=== PATIENT | female | born 1940 | race Caucasian/White ===

== ENCOUNTER 2017-02-16 03:21 | Inpatient (IN) | payer MEDICARE, OTHER ==
[~2017-02-16] VITALS: Ht 162.6 cm; Wt 36.2 kg
[~2017-02-16 03:21] MED LIST: AMLO5TAB16 PO; DOCU-20 PO; HYDR-3964 PO; IBUP-1984 PO; ONDA8TAB13 PO; POTA10TA15 PO
[2017-02-16] MEDS ORDERED: ondansetron/PF 4mg/2ml inj IV ONE (03:50)
[2017-02-16] MEDS ORDERED: normal saline 1000ML IV soln IVB ONE (03:50)
[2017-02-16 04:24] LABS: CLARITY,URINE Clear (Clear); COLOR,URINE Dark Yellow (Yellow); GLUCOSE, URINE Negative (Neg); KETONES,URINE Negative (Neg); LEUKOCYTE ESTERASE ,URINE Small (Neg); NITRITES, URINE Negative (Neg); OCCULT BLOOD,URINE Negative (Neg); PH,URINE 5.5 (4.8-8.0); PROTEIN,URINE Negative (Neg)
[2017-02-16] MEDS: morphine sulfate 8 MG/ML SYRINGE IV PRN ×3 (04:25→09:09)
[2017-02-16 04:34] LABS: UA COLLECTION TYPE CLN CATCH MIDSTREAM
[2017-02-16 04:35] LABS: BACTERIA,URINE FEW /HPF (Neg); MUCUS STRANDS FEW /LPF (Neg); RBC,URINE 0-2 /HPF (0-2); SQUAMOUS EPITHELIAL CELL,UR FEW /LPF (FEW)
[2017-02-16 04:50] LABS: BASOPHILS # (AUTO) 0.1 X10'3 (0-0.2); BASOPHILS % (AUTO) 0.6 % (0-1); EOSINOPHILS # (AUTO) 0.3 X10'3 (0-0.9); EOSINOPHILS % (AUTO) 1.5 % (0-6); HEMATOCRIT 39.2 % (35.0-45.0); HEMOGLOBIN 12.9 g/dl (12.0-16.0); LYMPHOCYTES # (AUTO) 1.3 X10'3 (1.1-4.8); LYMPHOCYTES % (AUTO) 7.2 % (21-51); MEAN CORPUSCULAR HEMOGLOBIN 30.1 PG (27.0-31.0); MEAN PLATELET VOLUME 8.2 FL (7.4-10.4); MONOCYTES # (AUTO) 1.6 X10'3 (0-0.9); NEUTROPHILS # (AUTO) 14.4 X10'3 (1.8-7.7); NEUTROPHILS % (AUTO) 81.7 % (42-75); PLATELET COUNT 441 X10'3 (140-440); RED CELL DISTRIBUTION WIDTH 14.5 % (11.5-14.5); WHITE BLOOD COUNT 17.7 X10'3 (4.5-11.0)
[2017-02-16 05:02] LABS: INR 1.3 INR; PARTIAL THROMBOPLASTIN TIME 27 SECONDS (22-32); PROTHROMBIN TIME 12.9 SECONDS (9.0-12.0)
[2017-02-16 05:04] LABS: ALANINE AMINOTRANSFERASE 26 U/L (12-78); ALBUMIN 2.5 G/DL (3.4-5.0); ALBUMIN/GLOBULIN RATIO 0.5 (1.1-1.5); ALKALINE PHOSPHATASE 212 IU/L (46-116); ANION GAP 7 (8-16); ASPARTATE AMINO TRANSFERASE 23 U/L (10-37); BILIRUBIN,TOTAL 1.1 MG/DL (0.1-1.0); BLOOD UREA NITROGEN 18 MG/DL (7-18); CALCIUM 9.7 MG/DL (8.5-10.1); CHLORIDE 94 MMOL/L (99-107); CREATININE 0.62 MG/DL (0.40-0.90); GLUCOSE 108 MG/DL (70-104); LIPASE < 50 U/L (73-393); POTASSIUM 4.2 MMOL/L (3.5-5.1); SODIUM 131 MMOL/L (135-145); TOTAL CARBON DIOXIDE 29.7 MMOL/L (24-32); TOTAL PROTEIN 7.5 G/DL (6.4-8.2); eGFR > 90 ML/MIN
[2017-02-16] MEDS ORDERED: POTASSIUM CL ER 10 MEQ TABLET (05:18)
[2017-02-16] MEDS ORDERED: HYDROMORPHONE 4 MG TABLET (05:18)
[2017-02-16] MEDS ORDERED: HYDROCODONE-ACETAMIN 5-325 MG (05:18)
[2017-02-16] MEDS ORDERED: ALENDRONATE SODIUM 70 MG TAB (05:18)
[2017-02-16] MEDS ORDERED: levoFLOXACIN-Levaquin 500mg/D5 100 ML IV ONE (05:40)
[2017-02-16] MEDS ORDERED: metroNIDAZOLE-Flagyl 500mg/NS 100 ML IV ONE (05:40)
[2017-02-16] MEDS ORDERED: magnesium hydroxide 30ml (MOM) UD suspension PO PRN (08:30)
[2017-02-16] MEDS ORDERED: potassium Cl 40MEQ/NS 500ml 500 ML IV PRN ×2 (08:30)
[2017-02-16] MEDS ORDERED: magnesium 2GM in 50ml NS 50 ML IV PRN (08:30)
[2017-02-16] MEDS ORDERED: magnesium 4gm in 100ml NS 100 ML IV PRN (08:30)
[2017-02-16] MEDS ORDERED: morphine sulfate 8 MG/ML SYRINGE IV PRN (08:30)
[2017-02-16] MEDS ORDERED: potassium Cl 20 mEq SR tablet PO PRN ×2 (08:30)
[2017-02-16] MEDS ORDERED: magnesium Cl slow-release 64mg tablet PO PRN (08:30)
[2017-02-16] MEDS ORDERED: mag hydrox/Alum hydrox/simeth 30ml oral suspension PO PRN (08:30)
[2017-02-16] MEDS ORDERED: acetaminophen 325mg tablet PO PRN (08:30)
[2017-02-16] MEDS ORDERED: LIDOcaine 1%/PF (10mg/ml) 5ml vial SQ ONE (09:50)
[2017-02-16] MEDS ORDERED: fentaNYL/PF 50MCG/1 ML 2ML syringe IV PRN (09:50)
[2017-02-16] MEDS ORDERED: fentaNYL/PF 50MCG/1 ML 2ML syringe ONE (09:54)
[2017-02-16 10:00] VITALS: BP 127/76
[2017-02-16 10:05] VITALS: BP 111/59
[2017-02-16 10:10] VITALS: BP 109/62
[2017-02-16 10:15] VITALS: BP 121/62
[2017-02-16 11:42] VITALS: BP 117/60
[2017-02-16] MEDS: normal saline 1000ml 1,000 ML IV SCH ×2 (14:36)
[2017-02-16] MEDS: metroNIDAZOLE-Flagyl 500mg/NS 100 ML IV SCH (17:59)
[2017-02-16] MEDS: lactobacillus rhamnosus 10,000 MMU CELLS/CAPSULE PO SCH (18:00)
[2017-02-16] MEDS: HYDROmorphone 2mg tablet PO PRN (18:01)
[2017-02-16 19:30] VITALS: BP 108/63
[2017-02-16] MEDS: HYDROcodone/acetaminophen 5mg/325mg tablet PO PRN (19:51)
[2017-02-17] MEDS: HYDROmorphone 2mg tablet PO PRN ×5 (00:01→20:05)
[2017-02-17] MEDS: normal saline 1000ml 1,000 ML IV SCH ×3 (01:00→23:46)
[2017-02-17 06:12] LABS: BASOPHILS % (AUTO) 0.3 % (0-1); EOSINOPHILS # (AUTO) 0.1 X10'3 (0-0.9); EOSINOPHILS % (AUTO) 0.6 % (0-6); HEMATOCRIT 33.7 % (35.0-45.0); HEMOGLOBIN 10.8 g/dl (12.0-16.0); LYMPHOCYTES # (AUTO) 1.2 X10'3 (1.1-4.8); LYMPHOCYTES % (AUTO) 11.8 % (21-51); MEAN CORPUSCULAR HEMOGLOBIN 29.3 PG (27.0-31.0); MEAN CORPUSCULAR HGB CONC 32.1 % (33.0-36.5); MEAN CORPUSCULAR VOLUME 91.2 FL (78-98); MEAN PLATELET VOLUME 7.9 FL (7.4-10.4); MONOCYTES # (AUTO) 1.6 X10'3 (0-0.9); MONOCYTES % (AUTO) 15.3 % (2-12); NEUTROPHILS # (AUTO) 7.4 X10'3 (1.8-7.7); PLATELET COUNT 328 X10'3 (140-440); RED BLOOD COUNT 3.69 X10'6 (4.20-5.60); RED CELL DISTRIBUTION WIDTH 14.3 % (11.5-14.5); WHITE BLOOD COUNT 10.3 X10'3 (4.5-11.0)
[2017-02-17 06:48] LABS: ALANINE AMINOTRANSFERASE 22 U/L (12-78); ALBUMIN 1.9 G/DL (3.4-5.0); ALBUMIN/GLOBULIN RATIO 0.5 (1.1-1.5); ALKALINE PHOSPHATASE 152 IU/L (46-116); ANION GAP 7 (8-16); ASPARTATE AMINO TRANSFERASE 21 U/L (10-37); BILIRUBIN,TOTAL 0.9 MG/DL (0.1-1.0); BLOOD UREA NITROGEN 12 MG/DL (7-18); BUN/CREATININE RATIO 24.5 (6.6-38.0); CALCIUM 8.4 MG/DL (8.5-10.1); CHLORIDE 105 MMOL/L (99-107); CREATININE 0.49 MG/DL (0.40-0.90); GLUCOSE 88 MG/DL (70-104); MAGNESIUM 1.7 MG/DL (1.5-2.4); POTASSIUM 4.1 MMOL/L (3.5-5.1); SODIUM 137 MMOL/L (135-145); TOTAL CARBON DIOXIDE 25.5 MMOL/L (24-32); TOTAL PROTEIN 5.7 G/DL (6.4-8.2); eGFR > 90 ML/MIN
[2017-02-17] MEDS: K and/or MAG REPLACEMENT MC SCH (07:07)
[2017-02-17] MEDS: lactobacillus rhamnosus 10,000 MMU CELLS/CAPSULE PO SCH ×2 (07:11→17:44)
[2017-02-17] MEDS: metroNIDAZOLE-Flagyl 500mg/NS 100 ML IV SCH ×4 (07:11→23:45)
[2017-02-17 08:00] VITALS: BP 104/56
[2017-02-17] MEDS: levoFLOXACIN-Levaquin 500mg/D5 100 ML IV SCH (08:46)
[2017-02-17] MEDS: LACTOSE-FREE FOOD 237ML (BOOST) PO SCH ×2 (08:46→17:30)
[2017-02-17 11:00] VITALS: BP 104/67
[2017-02-17] MEDS: HYDROcodone/acetaminophen 5mg/325mg tablet PO PRN ×3 (13:40→23:46)
[2017-02-17 19:25] VITALS: BP 111/63
[2017-02-17 23:30] VITALS: BP 104/63
[2017-02-18] MEDS: HYDROmorphone 2mg tablet PO PRN ×4 (02:56→20:08)
[2017-02-18 05:32] LABS: BASOPHILS % (AUTO) 0.5 % (0-1); EOSINOPHILS # (AUTO) 0.2 X10'3 (0-0.9); EOSINOPHILS % (AUTO) 1.6 % (0-6); HEMATOCRIT 33.5 % (35.0-45.0); HEMOGLOBIN 10.8 g/dl (12.0-16.0); LYMPHOCYTES # (AUTO) 0.9 X10'3 (1.1-4.8); LYMPHOCYTES % (AUTO) 8.2 % (21-51); MEAN CORPUSCULAR HEMOGLOBIN 29.5 PG (27.0-31.0); MEAN CORPUSCULAR HGB CONC 32.4 % (33.0-36.5); MEAN CORPUSCULAR VOLUME 91.1 FL (78-98); MEAN PLATELET VOLUME 8.3 FL (7.4-10.4); MONOCYTES # (AUTO) 1.5 X10'3 (0-0.9); MONOCYTES % (AUTO) 14.7 % (2-12); NEUTROPHILS # (AUTO) 7.9 X10'3 (1.8-7.7); PLATELET COUNT 268 X10'3 (140-440); RED BLOOD COUNT 3.67 X10'6 (4.20-5.60); RED CELL DISTRIBUTION WIDTH 14.7 % (11.5-14.5); WHITE BLOOD COUNT 10.5 X10'3 (4.5-11.0)
[2017-02-18] MEDS: HYDROcodone/acetaminophen 5mg/325mg tablet PO PRN ×4 (05:38→23:04)
[2017-02-18 06:18] LABS: ALANINE AMINOTRANSFERASE 18 U/L (12-78); ALBUMIN 1.8 G/DL (3.4-5.0); ALBUMIN/GLOBULIN RATIO 0.5 (1.1-1.5); ALKALINE PHOSPHATASE 134 IU/L (46-116); ANION GAP 9 (8-16); ASPARTATE AMINO TRANSFERASE 21 U/L (10-37); BILIRUBIN,TOTAL 0.8 MG/DL (0.1-1.0); BLOOD UREA NITROGEN 10 MG/DL (7-18); BUN/CREATININE RATIO 22.7 (6.6-38.0); CALCIUM 8.4 MG/DL (8.5-10.1); CHLORIDE 106 MMOL/L (99-107); CREATININE 0.44 MG/DL (0.40-0.90); GLUCOSE 93 MG/DL (70-104); MAGNESIUM 1.5 MG/DL (1.5-2.4); POTASSIUM 3.5 MMOL/L (3.5-5.1); SODIUM 138 MMOL/L (135-145); TOTAL CARBON DIOXIDE 22.8 MMOL/L (24-32); TOTAL PROTEIN 5.4 G/DL (6.4-8.2); eGFR > 90 ML/MIN
[2017-02-18 07:05] VITALS: BP 107/72
[2017-02-18] MEDS: K and/or MAG REPLACEMENT MC SCH (08:00)
[2017-02-18] MEDS: lactobacillus rhamnosus 10,000 MMU CELLS/CAPSULE PO SCH ×2 (08:13→16:55)
[2017-02-18] MEDS: metroNIDAZOLE-Flagyl 500mg/NS 100 ML IV SCH ×2 (08:13→16:55)
[2017-02-18] MEDS: normal saline 1000ml 1,000 ML IV SCH (08:16)
[2017-02-18] MEDS: LACTOSE-FREE FOOD 237ML (BOOST) PO SCH ×2 (08:21→18:00)
[2017-02-18] MEDS: levoFLOXACIN-Levaquin 500mg/D5 100 ML IV SCH (09:17)
[2017-02-18 11:00] VITALS: BP 110/55
[2017-02-18] MEDS ORDERED: iohexol 300mg/ml 100ml inj. ONE (13:22)
[2017-02-18 20:00] VITALS: BP 115/61
[2017-02-18] MEDS: ondansetron/PF 4mg/2ml inj IV PRN (20:07)
[2017-02-18 23:45] VITALS: BP 111/59
[2017-02-19] MEDS: metroNIDAZOLE-Flagyl 500mg/NS 100 ML IV SCH ×3 (00:03→16:39)
[2017-02-19] MEDS: HYDROmorphone 2mg tablet PO PRN ×6 (00:03→21:33)
[2017-02-19] MEDS: normal saline 1000ml 1,000 ML IV SCH ×3 (00:05→11:33)
[2017-02-19] MEDS: HYDROcodone/acetaminophen 5mg/325mg tablet PO PRN ×3 (05:00→19:25)
[2017-02-19 05:29] LABS: BASOPHILS % (AUTO) 0.2 % (0-1); EOSINOPHILS # (AUTO) 0.3 X10'3 (0-0.9); EOSINOPHILS % (AUTO) 2.3 % (0-6); HEMATOCRIT 32.6 % (35.0-45.0); HEMOGLOBIN 10.8 g/dl (12.0-16.0); LYMPHOCYTES # (AUTO) 1.3 X10'3 (1.1-4.8); LYMPHOCYTES % (AUTO) 10.5 % (21-51); MEAN CORPUSCULAR HEMOGLOBIN 29.7 PG (27.0-31.0); MEAN CORPUSCULAR HGB CONC 33.1 % (33.0-36.5); MEAN CORPUSCULAR VOLUME 89.9 FL (78-98); MEAN PLATELET VOLUME 7.7 FL (7.4-10.4); MONOCYTES # (AUTO) 1.3 X10'3 (0-0.9); MONOCYTES % (AUTO) 10.9 % (2-12); NEUTROPHILS # (AUTO) 9.2 X10'3 (1.8-7.7); NEUTROPHILS % (AUTO) 76.1 % (42-75); PLATELET COUNT 271 X10'3 (140-440); RED BLOOD COUNT 3.63 X10'6 (4.20-5.60); RED CELL DISTRIBUTION WIDTH 14.5 % (11.5-14.5); WHITE BLOOD COUNT 12.1 X10'3 (4.5-11.0)
[2017-02-19 05:49] LABS: ALANINE AMINOTRANSFERASE 17 U/L (12-78); ALBUMIN 1.9 G/DL (3.4-5.0); ALBUMIN/GLOBULIN RATIO 0.5 (1.1-1.5); ALKALINE PHOSPHATASE 129 IU/L (46-116); ANION GAP 8 (8-16); ASPARTATE AMINO TRANSFERASE 19 U/L (10-37); BILIRUBIN,TOTAL 0.8 MG/DL (0.1-1.0); BLOOD UREA NITROGEN 8 MG/DL (7-18); BUN/CREATININE RATIO 15.1 (6.6-38.0); CALCIUM 8.2 MG/DL (8.5-10.1); CHLORIDE 107 MMOL/L (99-107); CREATININE 0.53 MG/DL (0.40-0.90); GLUCOSE 114 MG/DL (70-104); MAGNESIUM 1.6 MG/DL (1.5-2.4); POTASSIUM 3.8 MMOL/L (3.5-5.1); SODIUM 139 MMOL/L (135-145); TOTAL CARBON DIOXIDE 24.1 MMOL/L (24-32); TOTAL PROTEIN 5.6 G/DL (6.4-8.2); eGFR > 90 ML/MIN
[2017-02-19] MEDS: LACTOSE-FREE FOOD 237ML (BOOST) PO SCH ×2 (07:30→17:31)
[2017-02-19] MEDS: K and/or MAG REPLACEMENT MC SCH (08:00)
[2017-02-19] MEDS: lactobacillus rhamnosus 10,000 MMU CELLS/CAPSULE PO SCH ×2 (08:50→17:15)
[2017-02-19 08:59] VITALS: BP 106/71
[2017-02-19] MEDS: levoFLOXACIN-Levaquin 500mg/D5 100 ML IV SCH (11:32)
[2017-02-19 12:00] VITALS: BP 130/77
[2017-02-19] MEDS ORDERED: FLUSH 5 MG ICATH ONE (14:15)
[2017-02-19] MEDS ORDERED: TPA CATHFLO ICATH ONE (14:15)
[2017-02-19] MEDS ORDERED: NORMAL SALINE ICATH ONE (14:15)
[2017-02-19] MEDS ORDERED: bisacodyl 5mg tablet.DR PO PRN (16:05)
[2017-02-19] MEDS: docusate sod 100mg capsule PO PRN (17:15)
[2017-02-19] MEDS ORDERED: cefepime 1GM/NS ADD-VANTAGE 100 ML IV SCH (18:40)
[2017-02-19 19:00] VITALS: BP 116/63
[2017-02-19] MEDS: clindamycin 600mg/D5W 50ml 50 ML IV SCH (19:28)
[2017-02-19] MEDS: heparin, porcine 5000 units/ml vial SQ SCH (23:52)
[2017-02-20] VITALS: BP 114/64
[2017-02-20] MEDS: normal saline 1000ml 1,000 ML IV SCH ×2 (01:05→11:20)
[2017-02-20] MEDS: clindamycin 600mg/D5W 50ml 50 ML IV SCH ×4 (01:05→20:11)
[2017-02-20] MEDS: HYDROcodone/acetaminophen 5mg/325mg tablet PO PRN ×4 (01:06→22:34)
[2017-02-20] MEDS: HYDROmorphone 2mg tablet PO PRN ×3 (04:17→20:11)
[2017-02-20 05:43] LABS: BASOPHILS # (AUTO) 0.1 X10'3 (0-0.2); BASOPHILS % (AUTO) 0.5 % (0-1); EOSINOPHILS # (AUTO) 0.2 X10'3 (0-0.9); EOSINOPHILS % (AUTO) 1.8 % (0-6); HEMATOCRIT 32.6 % (35.0-45.0); HEMOGLOBIN 10.6 g/dl (12.0-16.0); LYMPHOCYTES # (AUTO) 1.1 X10'3 (1.1-4.8); LYMPHOCYTES % (AUTO) 9.8 % (21-51); MEAN CORPUSCULAR HEMOGLOBIN 29.6 PG (27.0-31.0); MEAN CORPUSCULAR HGB CONC 32.5 % (33.0-36.5); MEAN PLATELET VOLUME 8.4 FL (7.4-10.4); MONOCYTES # (AUTO) 1.3 X10'3 (0-0.9); MONOCYTES % (AUTO) 10.9 % (2-12); PLATELET COUNT 245 X10'3 (140-440); RED BLOOD COUNT 3.58 X10'6 (4.20-5.60); WHITE BLOOD COUNT 11.7 X10'3 (4.5-11.0)
[2017-02-20 06:15] LABS: ALANINE AMINOTRANSFERASE 17 U/L (12-78); ALBUMIN 1.9 G/DL (3.4-5.0); ALBUMIN/GLOBULIN RATIO 0.5 (1.1-1.5); ALKALINE PHOSPHATASE 122 IU/L (46-116); ANION GAP 10 (8-16); ASPARTATE AMINO TRANSFERASE 17 U/L (10-37); BILIRUBIN,TOTAL 0.8 MG/DL (0.1-1.0); BLOOD UREA NITROGEN 8 MG/DL (7-18); BUN/CREATININE RATIO 14.5 (6.6-38.0); CALCIUM 8.4 MG/DL (8.5-10.1); CHLORIDE 109 MMOL/L (99-107); CREATININE 0.55 MG/DL (0.40-0.90); GLUCOSE 103 MG/DL (70-104); MAGNESIUM 1.7 MG/DL (1.5-2.4); POTASSIUM 3.9 MMOL/L (3.5-5.1); SODIUM 141 MMOL/L (135-145); TOTAL CARBON DIOXIDE 21.9 MMOL/L (24-32); TOTAL PROTEIN 5.4 G/DL (6.4-8.2); eGFR > 90 ML/MIN
[2017-02-20 07:00] VITALS: BP 113/44
[2017-02-20] MEDS ORDERED: FLUSH 5 MG ICATH ONE (08:00)
[2017-02-20] MEDS: K and/or MAG REPLACEMENT MC SCH (08:00)
[2017-02-20] MEDS ORDERED: NORMAL SALINE ICATH ONE (08:00)
[2017-02-20] MEDS ORDERED: TPA CATHFLO ICATH ONE (08:00)
[2017-02-20] MEDS: lactobacillus rhamnosus 10,000 MMU CELLS/CAPSULE PO SCH ×2 (09:12→17:03)
[2017-02-20] MEDS: heparin, porcine 5000 units/ml vial SQ SCH ×2 (09:18→16:23)
[2017-02-20] MEDS: LACTOSE-FREE FOOD 237ML (BOOST) PO SCH ×2 (09:18→17:31)
[2017-02-20] MEDS: docusate sod 100mg capsule PO PRN (09:29)
[2017-02-20 11:50] VITALS: BP 100/62
[2017-02-20] MEDS: docusate sod 250mg capsule PO SCH (20:10)
[2017-02-20 20:19] VITALS: BP 110/57
[2017-02-20] MEDS ORDERED: enoxaparin 40mg/0.4ml syringe SUBCUT ONE (22:10)
[2017-02-21] VITALS (7 sets, daily range): BP systolic 102–145; BP diastolic 62–82
[2017-02-21] MEDS: HYDROmorphone 2mg tablet PO PRN ×5 (00:56→20:04)
[2017-02-21] MEDS: clindamycin 600mg/D5W 50ml 50 ML IV SCH ×2 (03:35→07:49)
[2017-02-21] MEDS: HYDROcodone/acetaminophen 5mg/325mg tablet PO PRN ×3 (05:45→19:06)
[2017-02-21 07:37] LABS: ALANINE AMINOTRANSFERASE 18 U/L (12-78); ALBUMIN 1.7 G/DL (3.4-5.0); ALBUMIN/GLOBULIN RATIO 0.5 (1.1-1.5); ALKALINE PHOSPHATASE 113 IU/L (46-116); ANION GAP 8 (8-16); ASPARTATE AMINO TRANSFERASE 30 U/L (10-37); BILIRUBIN,TOTAL 0.8 MG/DL (0.1-1.0); BLOOD UREA NITROGEN 9 MG/DL (7-18); CALCIUM 7.9 MG/DL (8.5-10.1); CHLORIDE 111 MMOL/L (99-107); CREATININE 0.45 MG/DL (0.40-0.90); GLUCOSE 89 MG/DL (70-104); MAGNESIUM 1.6 MG/DL (1.5-2.4); SODIUM 140 MMOL/L (135-145); TOTAL CARBON DIOXIDE 20.7 MMOL/L (24-32); TOTAL PROTEIN 5.2 G/DL (6.4-8.2); eGFR > 90 ML/MIN
[2017-02-21] MEDS: lactobacillus rhamnosus 10,000 MMU CELLS/CAPSULE PO SCH ×2 (07:49→17:20)
[2017-02-21] MEDS: LACTOSE-FREE FOOD 237ML (BOOST) PO SCH ×2 (07:49→17:31)
[2017-02-21] MEDS: K and/or MAG REPLACEMENT MC SCH (07:57)
[2017-02-21] MEDS: ceftazidime 1000mg in D5W 50ml 50 ML IV SCH ×2 (11:48→20:05)
[2017-02-21] MEDS: metroNIDAZOLE-Flagyl 500mg/NS 100 ML IV SCH ×2 (12:42→21:20)
[2017-02-21] MEDS: vancomycin/NS 1 GM ADD-VANTAGE 250 ML IV SCH (13:00)
[2017-02-21] MEDS ORDERED: fentaNYL/PF 50MCG/1 ML 2ML syringe ONE (13:54)
[2017-02-21] MEDS: docusate sod 250mg capsule PO SCH (20:03)
[2017-02-21] MEDS: enoxaparin 40mg/0.4ml syringe SUBCUT SCH (20:05)
[2017-02-22] VITALS: BP 105/63
[2017-02-22] MEDS: HYDROmorphone 2mg tablet PO PRN ×5 (01:07→21:37)
[2017-02-22] MEDS: HYDROcodone/acetaminophen 5mg/325mg tablet PO PRN ×3 (04:20→20:40)
[2017-02-22 08:00] VITALS: BP 118/54
[2017-02-22] MEDS: K and/or MAG REPLACEMENT MC SCH (08:00)
[2017-02-22] MEDS: lactobacillus rhamnosus 10,000 MMU CELLS/CAPSULE PO SCH ×2 (08:16→16:57)
[2017-02-22] MEDS: enoxaparin 40mg/0.4ml syringe SUBCUT SCH (08:16)
[2017-02-22] MEDS: LACTOSE-FREE FOOD 237ML (BOOST) PO SCH ×2 (08:17→17:56)
[2017-02-22] MEDS: ceftazidime 1000mg in D5W 50ml 50 ML IV SCH ×2 (08:37→20:40)
[2017-02-22] MEDS ORDERED: bisacodyl 10mg suppository rectal RC PRN (09:20)
[2017-02-22] MEDS: metroNIDAZOLE-Flagyl 500mg/NS 100 ML IV SCH (09:24)
[2017-02-22] MEDS: vancomycin/NS 1 GM ADD-VANTAGE 250 ML IV SCH (10:47)
[2017-02-22 11:00] VITALS: BP 104/63
[2017-02-22] MEDS ORDERED: polyethylene glycol 3350 17gm powd pack PO ONE (13:30)
[2017-02-22 18:15] VITALS: BP 115/61
[2017-02-22] MEDS: apixaban 5mg tablet PO SCH (20:39)
[2017-02-22] MEDS: docusate sod 250mg capsule PO SCH (20:39)
[2017-02-22] MEDS: metroNIDAZOLE 500mg tablet PO SCH (20:40)
[2017-02-22] MEDS ORDERED: polyethylene glycol 3350 17gm powd pack PO SCH (21:00)
[2017-02-22 23:00] VITALS: BP 112/69
[2017-02-23] MEDS: HYDROmorphone 2mg tablet PO PRN ×5 (01:55→21:49)
[2017-02-23] MEDS: HYDROcodone/acetaminophen 5mg/325mg tablet PO PRN ×2 (04:49→15:19)
[2017-02-23] MEDS: ondansetron/PF 4mg/2ml inj IV PRN (04:49)
[2017-02-23 07:20] VITALS: BP 112/66
[2017-02-23] MEDS: metroNIDAZOLE 500mg tablet PO SCH ×2 (07:28→20:30)
[2017-02-23] MEDS: apixaban 5mg tablet PO SCH ×2 (07:28→20:30)
[2017-02-23] MEDS: lactobacillus rhamnosus 10,000 MMU CELLS/CAPSULE PO SCH ×2 (07:28→17:09)
[2017-02-23] MEDS: ceftazidime 1000mg in D5W 50ml 50 ML IV SCH ×2 (07:31→20:30)
[2017-02-23] MEDS: K and/or MAG REPLACEMENT MC SCH (07:31)
[2017-02-23] MEDS ORDERED: bisacodyl 5mg tablet.DR PO SCH (08:35)
[2017-02-23] MEDS: LACTOSE-FREE FOOD 237ML (BOOST) PO SCH (08:53)
[2017-02-23] MEDS: vancomycin/NS 1 GM ADD-VANTAGE 250 ML IV SCH (08:53)
[2017-02-23 11:52] VITALS: BP 108/65
[2017-02-23 18:30] VITALS: BP 116/70
[2017-02-23] MEDS: docusate sod 250mg capsule PO SCH (20:30)
[2017-02-24] VITALS: BP 99/57
[2017-02-24] MEDS: HYDROcodone/acetaminophen 5mg/325mg tablet PO PRN ×3 (00:03→23:31)
[2017-02-24] MEDS: HYDROmorphone 2mg tablet PO PRN ×4 (02:46→19:57)
[2017-02-24] MEDS: LACTOSE-FREE FOOD 237ML (BOOST) PO SCH ×3 (02:46→17:54)
[2017-02-24 07:23] VITALS: BP 111/61
[2017-02-24] MEDS ORDERED: VANCOMYCIN LEVEL IV ONE (07:30)
[2017-02-24] MEDS: K and/or MAG REPLACEMENT MC SCH (08:00)
[2017-02-24] MEDS: metroNIDAZOLE 500mg tablet PO SCH ×2 (08:36→19:56)
[2017-02-24] MEDS: ceftazidime 1000mg in D5W 50ml 50 ML IV SCH ×2 (08:36→19:59)
[2017-02-24] MEDS: lactobacillus rhamnosus 10,000 MMU CELLS/CAPSULE PO SCH ×2 (08:36→16:44)
[2017-02-24] MEDS: apixaban 5mg tablet PO SCH ×2 (08:36→19:56)
[2017-02-24 08:44] LABS: BASOPHILS # (AUTO) 0.1 X10'3 (0-0.2); BASOPHILS % (AUTO) 0.6 % (0-1); EOSINOPHILS # (AUTO) 0.3 X10'3 (0-0.9); EOSINOPHILS % (AUTO) 2.4 % (0-6); HEMOGLOBIN 11.8 g/dl (12.0-16.0); LYMPHOCYTES % (AUTO) 18.6 % (21-51); MEAN CORPUSCULAR HEMOGLOBIN 29.6 PG (27.0-31.0); MEAN CORPUSCULAR HGB CONC 32.7 % (33.0-36.5); MEAN CORPUSCULAR VOLUME 90.4 FL (78-98); MEAN PLATELET VOLUME 8.2 FL (7.4-10.4); MONOCYTES # (AUTO) 1.2 X10'3 (0-0.9); MONOCYTES % (AUTO) 11.1 % (2-12); NEUTROPHILS # (AUTO) 7.2 X10'3 (1.8-7.7); NEUTROPHILS % (AUTO) 67.3 % (42-75); PLATELET COUNT 304 X10'3 (140-440); RED BLOOD COUNT 3.98 X10'6 (4.20-5.60); RED CELL DISTRIBUTION WIDTH 15.6 % (11.5-14.5); WHITE BLOOD COUNT 10.7 X10'3 (4.5-11.0)
[2017-02-24 08:47] LABS: ALBUMIN 1.9 G/DL (3.4-5.0); ANION GAP 5 (8-16); BLOOD UREA NITROGEN 12 MG/DL (7-18); BUN/CREATININE RATIO 21.1 (6.6-38.0); CALCIUM 8.3 MG/DL (8.5-10.1); CHLORIDE 109 MMOL/L (99-107); CREATININE 0.57 MG/DL (0.40-0.90); GLUCOSE 110 MG/DL (70-104); POTASSIUM 4.2 MMOL/L (3.5-5.1); SODIUM 141 MMOL/L (135-145); TOTAL CARBON DIOXIDE 27.4 MMOL/L (24-32); VANCOMYCIN,TROUGH 6.1 UG/ML (6.0-14.0); eGFR > 90 ML/MIN
[2017-02-24] MEDS: vancomycin/NS 1 GM ADD-VANTAGE 250 ML IV SCH (10:19)
[2017-02-24 12:02] VITALS: BP 102/61
[2017-02-24] MEDS: bisacodyl 5mg tablet.DR PO PRN (15:39)
[2017-02-24] MEDS: Protein Shake (high protein) 240ml (8oz) cup PO SCH (17:54)
[2017-02-24 19:00] VITALS: BP 117/70
[2017-02-24] MEDS: docusate sod 250mg capsule PO SCH (21:15)
[2017-02-25] VITALS: BP 112/69
[2017-02-25] MEDS: HYDROmorphone 2mg tablet PO PRN ×3 (01:49→13:39)
[2017-02-25] MEDS: K and/or MAG REPLACEMENT MC SCH (08:00)
[2017-02-25] MEDS: ceftazidime 1000mg in D5W 50ml 50 ML IV SCH ×2 (08:26→20:00)
[2017-02-25] MEDS: lactobacillus rhamnosus 10,000 MMU CELLS/CAPSULE PO SCH ×2 (08:27→17:30)
[2017-02-25] MEDS: apixaban 5mg tablet PO SCH ×2 (08:27→20:00)
[2017-02-25] MEDS: metroNIDAZOLE 500mg tablet PO SCH ×2 (08:27→20:00)
[2017-02-25] MEDS: LACTOSE-FREE FOOD 237ML (BOOST) PO SCH ×2 (08:28→18:06)
[2017-02-25] MEDS: Protein Shake (high protein) 240ml (8oz) cup PO SCH ×3 (08:28→18:06)
[2017-02-25 09:20] VITALS: BP 113/64
[2017-02-25] MEDS ORDERED: magnesium citrate 296ml oral solution PO ONE (09:30)
[2017-02-25] MEDS: vancomycin inj 1,250 MG in normal saline 250ml IV soln 250 ML IV SCH (09:30)
[2017-02-25 11:00] VITALS: BP 106/62
[2017-02-25 11:20] LABS: ALBUMIN 1.8 G/DL (3.4-5.0); ANION GAP 5 (8-16); BLOOD UREA NITROGEN 13 MG/DL (7-18); BUN/CREATININE RATIO 27.7 (6.6-38.0); CHLORIDE 108 MMOL/L (99-107); CREATININE 0.47 MG/DL (0.40-0.90); GLUCOSE 129 MG/DL (70-104); POTASSIUM 3.9 MMOL/L (3.5-5.1); SODIUM 140 MMOL/L (135-145); TOTAL CARBON DIOXIDE 26.9 MMOL/L (24-32); eGFR > 90 ML/MIN
[2017-02-25] MEDS: HYDROcodone/acetaminophen 5mg/325mg tablet PO PRN (16:29)
[2017-02-25] MEDS ORDERED: morphine/NS 5 mg/ml CADD 50 ML IV SCH (18:10)
[2017-02-25 19:00] VITALS: BP 117/67
[2017-02-25] MEDS: docusate sod 250mg capsule PO SCH (21:00)
[2017-02-25 23:00] VITALS: BP 123/73
[2017-02-26] VITALS: BP 112/54
[2017-02-26] MEDS: morphine/NS 5 mg/ml CADD 50 ML IV SCH ×10 (05:00→23:00)
[2017-02-26 06:36] LABS: ALBUMIN 1.9 G/DL (3.4-5.0); ANION GAP 7 (8-16); BLOOD UREA NITROGEN 12 MG/DL (7-18); BUN/CREATININE RATIO 23.1 (6.6-38.0); CALCIUM 8.3 MG/DL (8.5-10.1); CHLORIDE 110 MMOL/L (99-107); CREATININE 0.52 MG/DL (0.40-0.90); GLUCOSE 103 MG/DL (70-104); POTASSIUM 3.9 MMOL/L (3.5-5.1); SODIUM 143 MMOL/L (135-145); TOTAL CARBON DIOXIDE 25.7 MMOL/L (24-32); eGFR > 90 ML/MIN
[2017-02-26 07:12] VITALS: BP 99/58
[2017-02-26] MEDS: LACTOSE-FREE FOOD 237ML (BOOST) PO SCH ×2 (07:30→15:12)
[2017-02-26] MEDS: K and/or MAG REPLACEMENT MC SCH (08:00)
[2017-02-26] MEDS: Protein Shake (high protein) 240ml (8oz) cup PO SCH ×3 (08:00→17:48)
[2017-02-26] MEDS: apixaban 5mg tablet PO SCH ×2 (10:43→22:45)
[2017-02-26] MEDS: lactobacillus rhamnosus 10,000 MMU CELLS/CAPSULE PO SCH ×2 (10:43→17:47)
[2017-02-26] MEDS: ceftazidime 1000mg in D5W 50ml 50 ML IV SCH ×2 (10:43→20:00)
[2017-02-26] MEDS: metroNIDAZOLE 500mg tablet PO SCH ×2 (10:44→22:44)
[2017-02-26] MEDS: vancomycin inj 1,250 MG in normal saline 250ml IV soln 250 ML IV SCH (10:44)
[2017-02-26 12:00] VITALS: BP 102/57
[2017-02-26] MEDS ORDERED: bisacodyl 10mg suppository rectal RC PRN (16:55)
[2017-02-26 19:00] VITALS: BP 108/67
[2017-02-26] MEDS ORDERED: normal saline 1000ml 1,000 ML IV ONE (20:05)
[2017-02-26] MEDS: docusate sod 250mg capsule PO SCH (22:45)
[2017-02-26 23:00] VITALS: BP 112/54
[2017-02-27] MEDS ORDERED: normal saline 1000ml 1,000 ML IV ONE (00:50)
[2017-02-27] MEDS: morphine/NS 5 mg/ml CADD 50 ML IV SCH ×11 (01:00→23:00)
[2017-02-27] MEDS: apixaban 5mg tablet PO SCH ×2 (07:04→20:20)
[2017-02-27] MEDS: metroNIDAZOLE 500mg tablet PO SCH ×2 (07:05→20:20)
[2017-02-27] MEDS: lactobacillus rhamnosus 10,000 MMU CELLS/CAPSULE PO SCH ×2 (07:05→17:30)
[2017-02-27] MEDS: ceftazidime 1000mg in D5W 50ml 50 ML IV SCH ×2 (07:05→20:20)
[2017-02-27] MEDS: LACTOSE-FREE FOOD 237ML (BOOST) PO SCH ×2 (07:08→17:30)
[2017-02-27 07:51] VITALS: BP 107/65
[2017-02-27] MEDS: K and/or MAG REPLACEMENT MC SCH (08:00)
[2017-02-27] MEDS: Protein Shake (high protein) 240ml (8oz) cup PO SCH ×3 (08:13→18:00)
[2017-02-27] MEDS: vancomycin inj 1,250 MG in normal saline 250ml IV soln 250 ML IV SCH (10:45)
[2017-02-27 11:00] VITALS: BP 123/67
[2017-02-27] MEDS ORDERED: lipase/protease/amylase 20,000 unit capsule.DR PO SCH (18:49)
[2017-02-27] MEDS ORDERED: LIPASE/PROTEASE/AMYLASE 4,200 unit CAPSULE.DR PO SCH (19:20)
[2017-02-27 20:00] VITALS: BP 112/64
[2017-02-27] MEDS: megestrol acetate 400mg/10ml UD oral suspension PO SCH (20:00)
[2017-02-27] MEDS: LIPASE/PROTEASE/AMYLASE 4,200 unit CAPSULE.DR PO SCH (20:20)
[2017-02-27] MEDS: docusate sod 250mg capsule PO SCH (21:00)
[2017-02-27] MEDS: polyethylene glycol 3350 17gm powd pack PO SCH (21:00)
[2017-02-27] MEDS: normal saline 1000ml 1,000 ML IV SCH (22:35)
[2017-02-28] VITALS: BP 122/68
[2017-02-28] MEDS: normal saline 1000ml 1,000 ML IV SCH ×4 (00:12→23:14)
[2017-02-28] MEDS: morphine/NS 5 mg/ml CADD 50 ML IV SCH ×12 (01:00→23:00)
[2017-02-28] MEDS ORDERED: VANCOMYCIN LEVEL IV ONE (07:30)
[2017-02-28] MEDS: lactobacillus rhamnosus 10,000 MMU CELLS/CAPSULE PO SCH (07:30)
[2017-02-28 07:35] VITALS: BP 113/68
[2017-02-28 07:52] LABS: BASOPHILS % (AUTO) 0.3 % (0-1); EOSINOPHILS # (AUTO) 0.2 X10'3 (0-0.9); EOSINOPHILS % (AUTO) 2.3 % (0-6); HEMOGLOBIN 12.2 g/dl (12.0-16.0); LYMPHOCYTES # (AUTO) 1.9 X10'3 (1.1-4.8); LYMPHOCYTES % (AUTO) 17.9 % (21-51); MEAN CORPUSCULAR HEMOGLOBIN 29.6 PG (27.0-31.0); MEAN CORPUSCULAR HGB CONC 32.2 % (33.0-36.5); MEAN CORPUSCULAR VOLUME 91.9 FL (78-98); MEAN PLATELET VOLUME 8.6 FL (7.4-10.4); MONOCYTES # (AUTO) 0.9 X10'3 (0-0.9); MONOCYTES % (AUTO) 8.6 % (2-12); NEUTROPHILS # (AUTO) 7.7 X10'3 (1.8-7.7); NEUTROPHILS % (AUTO) 70.9 % (42-75); PLATELET COUNT 315 X10'3 (140-440); RED BLOOD COUNT 4.13 X10'6 (4.20-5.60); RED CELL DISTRIBUTION WIDTH 16.9 % (11.5-14.5); WHITE BLOOD COUNT 10.9 X10'3 (4.5-11.0)
[2017-02-28 07:53] LABS: ALANINE AMINOTRANSFERASE 13 U/L (12-78); ALBUMIN 1.9 G/DL (3.4-5.0); ALBUMIN/GLOBULIN RATIO 0.5 (1.1-1.5); ALKALINE PHOSPHATASE 99 IU/L (46-116); ANION GAP 5 (8-16); ASPARTATE AMINO TRANSFERASE 28 U/L (10-37); BILIRUBIN,TOTAL 1.1 MG/DL (0.1-1.0); BLOOD UREA NITROGEN 11 MG/DL (7-18); CHLORIDE 111 MMOL/L (99-107); GLUCOSE 100 MG/DL (70-104); POTASSIUM 3.8 MMOL/L (3.5-5.1); SODIUM 141 MMOL/L (135-145); TOTAL CARBON DIOXIDE 24.7 MMOL/L (24-32); TOTAL PROTEIN 5.5 G/DL (6.4-8.2); eGFR > 90 ML/MIN
[2017-02-28 07:54] LABS: VANCOMYCIN,TROUGH 9.5 UG/ML (6.0-14.0)
[2017-02-28] MEDS: Protein Shake (high protein) 240ml (8oz) cup PO SCH ×3 (08:00→18:50)
[2017-02-28] MEDS: K and/or MAG REPLACEMENT MC SCH (08:00)
[2017-02-28] MEDS: LACTOSE-FREE FOOD 237ML (BOOST) PO SCH ×3 (09:42→18:52)
[2017-02-28] MEDS: apixaban 5mg tablet PO SCH ×2 (09:43→23:27)
[2017-02-28] MEDS: ceftazidime 1000mg in D5W 50ml 50 ML IV SCH ×2 (09:43→23:16)
[2017-02-28] MEDS: metroNIDAZOLE 500mg tablet PO SCH ×2 (09:43→23:27)
[2017-02-28] MEDS: LIPASE/PROTEASE/AMYLASE 4,200 unit CAPSULE.DR PO SCH ×3 (09:46→17:46)
[2017-02-28 11:30] VITALS: BP 107/58
[2017-02-28] MEDS: megestrol acetate 400mg/10ml UD oral suspension PO SCH ×2 (13:10→23:27)
[2017-02-28 20:00] VITALS: BP 115/68
[2017-02-28] MEDS: docusate sod 250mg capsule PO SCH (21:00)
[2017-02-28] MEDS: polyethylene glycol 3350 17gm powd pack PO SCH ×2 (21:00→23:28)
[2017-03-01] VITALS: BP 115/68
[2017-03-01] MEDS: morphine/NS 5 mg/ml CADD 50 ML IV SCH ×12 (01:00→23:00)
[2017-03-01] MEDS ORDERED: metoprolol tartrate 50mg tablet PO ONE (02:10)
[2017-03-01 03:45] VITALS: BP 95/62
[2017-03-01 07:21] VITALS: BP 102/67
[2017-03-01] MEDS: Protein Shake (high protein) 240ml (8oz) cup PO SCH ×3 (08:00→18:19)
[2017-03-01] MEDS: ceftazidime 1000mg in D5W 50ml 50 ML IV SCH ×2 (08:00→20:29)
[2017-03-01] MEDS: K and/or MAG REPLACEMENT MC SCH (08:00)
[2017-03-01] MEDS: LACTOBACILLUS RHAMNOSUS GG 15 billion unit sprinkle caps PO SCH (09:42)
[2017-03-01] MEDS: apixaban 5mg tablet PO SCH ×2 (09:45→22:13)
[2017-03-01] MEDS: metroNIDAZOLE 500mg tablet PO SCH ×2 (09:45→22:08)
[2017-03-01] MEDS: LIPASE/PROTEASE/AMYLASE 4,200 unit CAPSULE.DR PO SCH ×3 (09:46→17:20)
[2017-03-01] MEDS: megestrol acetate 400mg/10ml UD oral suspension PO SCH ×2 (09:46→22:13)
[2017-03-01 11:37] VITALS: BP 96/58
[2017-03-01] MEDS ORDERED: magnesium 2GM in 50ml NS 50 ML IV ONE (11:45)
[2017-03-01] MEDS: normal saline 1000ml 1,000 ML IV SCH (14:58)
[2017-03-01] MEDS: LACTOSE-FREE FOOD 237ML (BOOST) PO SCH (17:30)
[2017-03-01 18:30] VITALS: BP 103/77
[2017-03-01] MEDS: docusate sod 250mg capsule PO SCH (22:12)
[2017-03-01] MEDS: polyethylene glycol 3350 17gm powd pack PO SCH (22:14)
[2017-03-02 00:03] VITALS: BP 123/56
[2017-03-02] MEDS: morphine/NS 5 mg/ml CADD 50 ML IV SCH ×12 (01:00→23:00)
[2017-03-02] MEDS: normal saline 1000ml 1,000 ML IV SCH ×2 (05:52→23:52)
[2017-03-02] MEDS: LACTOSE-FREE FOOD 237ML (BOOST) PO SCH ×2 (07:03→17:30)
[2017-03-02] MEDS: LACTOBACILLUS RHAMNOSUS GG 15 billion unit sprinkle caps PO SCH (07:04)
[2017-03-02] MEDS: metroNIDAZOLE 500mg tablet PO SCH ×2 (07:04→19:36)
[2017-03-02] MEDS: LIPASE/PROTEASE/AMYLASE 4,200 unit CAPSULE.DR PO SCH ×3 (07:05→17:28)
[2017-03-02] MEDS: apixaban 5mg tablet PO SCH ×2 (07:05→19:37)
[2017-03-02] MEDS: megestrol acetate 400mg/10ml UD oral suspension PO SCH ×2 (07:05→19:40)
[2017-03-02 07:55] VITALS: BP 163/77
[2017-03-02] MEDS: Protein Shake (high protein) 240ml (8oz) cup PO SCH ×3 (08:00→19:25)
[2017-03-02] MEDS: ceftazidime 1000mg in D5W 50ml 50 ML IV SCH ×2 (08:56→19:40)
[2017-03-02] MEDS: metoprolol tartrate 12.5mg (1/2 tablet) PO SCH ×2 (08:59→20:00)
[2017-03-02 11:00] VITALS: BP 100/63
[2017-03-02] MEDS ORDERED: LIDOcaine 2% 10ml TOPICAL JELLY (Urojet) MM PRN (14:30)
[2017-03-02] MEDS ORDERED: CADD PCA waste documentation MC PRN (18:40)
[2017-03-02 19:15] VITALS: BP 105/67
[2017-03-02 21:10] VITALS: BP 90/55
[2017-03-02] MEDS: docusate sod 250mg capsule PO SCH (21:12)
[2017-03-02] MEDS: polyethylene glycol 3350 17gm powd pack PO SCH (21:12)
[2017-03-03] VITALS: BP 99/63
[2017-03-03] MEDS ORDERED: CADD PCA waste documentation MC PRN (05:30)
[2017-03-03] MEDS ORDERED: naloxone 0.4 mg/ml inj IV PRN (05:30)
[2017-03-03] MEDS: morphine/NS 5 mg/ml CADD 50 ML IV SCH ×10 (05:30→23:30)
[2017-03-03 06:54] LABS: ALBUMIN 1.6 G/DL (3.4-5.0); ANION GAP 4 (8-16); BLOOD UREA NITROGEN 12 MG/DL (7-18); BUN/CREATININE RATIO 14.5 (6.6-38.0); CALCIUM 8.2 MG/DL (8.5-10.1); CHLORIDE 114 MMOL/L (99-107); CREATININE 0.83 MG/DL (0.40-0.90); GLUCOSE 98 MG/DL (70-104); POTASSIUM 3.8 MMOL/L (3.5-5.1); SODIUM 141 MMOL/L (135-145); TOTAL CARBON DIOXIDE 23.3 MMOL/L (24-32); eGFR 67 ML/MIN
[2017-03-03] MEDS: LACTOSE-FREE FOOD 237ML (BOOST) PO SCH ×2 (07:30→17:30)
[2017-03-03 07:48] VITALS: BP 115/75
[2017-03-03] MEDS: LACTOBACILLUS RHAMNOSUS GG 15 billion unit sprinkle caps PO SCH (07:49)
[2017-03-03] MEDS: metoprolol tartrate 12.5mg (1/2 tablet) PO SCH ×2 (07:49→22:15)
[2017-03-03] MEDS: LIPASE/PROTEASE/AMYLASE 4,200 unit CAPSULE.DR PO SCH ×3 (07:49→18:01)
[2017-03-03] MEDS: apixaban 5mg tablet PO SCH ×2 (07:49→22:15)
[2017-03-03] MEDS: megestrol acetate 400mg/10ml UD oral suspension PO SCH ×2 (07:49→22:15)
[2017-03-03] MEDS: metroNIDAZOLE 500mg tablet PO SCH ×2 (07:50→22:15)
[2017-03-03] MEDS: ceftazidime 1000mg in D5W 50ml 50 ML IV SCH ×2 (07:52→20:20)
[2017-03-03] MEDS: Protein Shake (high protein) 240ml (8oz) cup PO SCH ×3 (07:56→18:50)
[2017-03-03] MEDS ORDERED: VANCOMYCIN LEVEL IV ONE (09:30)
[2017-03-03 09:57] LABS: BASOPHILS # (AUTO) 0.2 X10'3 (0-0.2); BASOPHILS % (AUTO) 1.2 % (0-1); EOSINOPHILS # (AUTO) 0.3 X10'3 (0-0.9); EOSINOPHILS % (AUTO) 2.5 % (0-6); HEMATOCRIT 35.7 % (35.0-45.0); HEMOGLOBIN 11.7 g/dl (12.0-16.0); LYMPHOCYTES # (AUTO) 1.9 X10'3 (1.1-4.8); MEAN CORPUSCULAR HGB CONC 32.9 % (33.0-36.5); MEAN CORPUSCULAR VOLUME 91.4 FL (78-98); MEAN PLATELET VOLUME 8.6 FL (7.4-10.4); MONOCYTES # (AUTO) 1.1 X10'3 (0-0.9); MONOCYTES % (AUTO) 8.5 % (2-12); NEUTROPHILS % (AUTO) 72.8 % (42-75); PLATELET COUNT 255 X10'3 (140-440); RED CELL DISTRIBUTION WIDTH 18.8 % (11.5-14.5); WHITE BLOOD COUNT 12.4 X10'3 (4.5-11.0)
[2017-03-03] MEDS: normal saline 1000ml 1,000 ML IV SCH ×3 (10:45→20:18)
[2017-03-03 11:56] VITALS: BP 87/54
[2017-03-03 19:00] VITALS: BP 103/47
[2017-03-03] MEDS: docusate sod 250mg capsule PO SCH (22:16)
[2017-03-03] MEDS: polyethylene glycol 3350 17gm powd pack PO SCH (22:16)
[2017-03-04] VITALS: BP 95/59
[2017-03-04] MEDS: morphine/NS 5 mg/ml CADD 50 ML IV SCH ×12 (01:00→23:30)
[2017-03-04] MEDS: normal saline 1000ml 1,000 ML IV SCH ×3 (03:13→19:30)
[2017-03-04 05:11] LABS: HEMATOCRIT 33.2 % (35.0-45.0); HEMOGLOBIN 10.7 g/dl (12.0-16.0); MEAN CORPUSCULAR HEMOGLOBIN 29.5 PG (27.0-31.0); MEAN CORPUSCULAR HGB CONC 32.3 % (33.0-36.5); MEAN CORPUSCULAR VOLUME 91.4 FL (78-98); MEAN PLATELET VOLUME 8.9 FL (7.4-10.4); PLATELET COUNT 256 X10'3 (140-440); RED BLOOD COUNT 3.63 X10'6 (4.20-5.60); RED CELL DISTRIBUTION WIDTH 18.7 % (11.5-14.5); WHITE BLOOD COUNT 10.4 X10'3 (4.5-11.0)
[2017-03-04 06:00] VITALS: BP 92/63
[2017-03-04] MEDS: ceftazidime 1000mg in D5W 50ml 50 ML IV SCH ×2 (07:15→22:32)
[2017-03-04] MEDS: megestrol acetate 400mg/10ml UD oral suspension PO SCH ×2 (07:15→22:33)
[2017-03-04] MEDS: LACTOBACILLUS RHAMNOSUS GG 15 billion unit sprinkle caps PO SCH (07:18)
[2017-03-04] MEDS: metoprolol tartrate 12.5mg (1/2 tablet) PO SCH ×2 (07:18→22:32)
[2017-03-04] MEDS: apixaban 5mg tablet PO SCH ×2 (07:18→22:32)
[2017-03-04] MEDS: metroNIDAZOLE 500mg tablet PO SCH ×2 (07:19→22:32)
[2017-03-04] MEDS: LIPASE/PROTEASE/AMYLASE 4,200 unit CAPSULE.DR PO SCH ×3 (07:19→20:23)
[2017-03-04] MEDS: LACTOSE-FREE FOOD 237ML (BOOST) PO SCH ×2 (07:26→17:30)
[2017-03-04 07:27] VITALS: BP 103/83
[2017-03-04] MEDS: Protein Shake (high protein) 240ml (8oz) cup PO SCH ×4 (08:44→18:30)
[2017-03-04] MEDS ORDERED: ipratropium/albuterol 3ml nebule NEB PRN (08:45)
[2017-03-04] MEDS: vancomycin inj 1,250 MG in normal saline 250ml IV soln 250 ML IV SCH (10:41)
[2017-03-04 12:09] VITALS: BP 93/52
[2017-03-04] MEDS ORDERED: normal saline 1000ml 1,000 ML IV SCH (18:25)
[2017-03-04 19:00] VITALS: BP 90/41
[2017-03-04] MEDS: polyethylene glycol 3350 17gm powd pack PO SCH ×2 (22:32→22:33)
[2017-03-04] MEDS: docusate sod 250mg capsule PO SCH (22:33)
[2017-03-04] MEDS: bisacodyl 5mg tablet.DR PO PRN (22:48)
[2017-03-04 23:30] VITALS: BP 107/68
[2017-03-05] MEDS: morphine/NS 5 mg/ml CADD 50 ML IV SCH ×12 (01:00→23:00)
[2017-03-05] MEDS: normal saline 1000ml 1,000 ML IV SCH ×2 (01:12→08:07)
[2017-03-05 05:25] LABS: HEMATOCRIT 35.2 % (35.0-45.0); HEMOGLOBIN 11.4 g/dl (12.0-16.0); MEAN CORPUSCULAR HEMOGLOBIN 29.7 PG (27.0-31.0); MEAN CORPUSCULAR HGB CONC 32.4 % (33.0-36.5); MEAN CORPUSCULAR VOLUME 91.8 FL (78-98); PLATELET COUNT 275 X10'3 (140-440); RED BLOOD COUNT 3.83 X10'6 (4.20-5.60); RED CELL DISTRIBUTION WIDTH 19.2 % (11.5-14.5); WHITE BLOOD COUNT 11.8 X10'3 (4.5-11.0)
[2017-03-05 05:48] LABS: ALBUMIN 1.6 G/DL (3.4-5.0); ANION GAP 6 (8-16); BLOOD UREA NITROGEN 12 MG/DL (7-18); BUN/CREATININE RATIO 14.1 (6.6-38.0); CALCIUM 7.8 MG/DL (8.5-10.1); CHLORIDE 115 MMOL/L (99-107); CREATININE 0.85 MG/DL (0.40-0.90); GLUCOSE 96 MG/DL (70-104); MAGNESIUM 1.7 MG/DL (1.5-2.4); POTASSIUM 3.7 MMOL/L (3.5-5.1); SODIUM 144 MMOL/L (135-145); TOTAL CARBON DIOXIDE 22.6 MMOL/L (24-32); eGFR 65 ML/MIN
[2017-03-05] MEDS: LACTOSE-FREE FOOD 237ML (BOOST) PO SCH ×2 (07:30→17:30)
[2017-03-05 07:41] VITALS: BP 100/60
[2017-03-05] MEDS: Protein Shake (high protein) 240ml (8oz) cup PO SCH ×3 (08:00→18:00)
[2017-03-05] MEDS: apixaban 5mg tablet PO SCH (09:02)
[2017-03-05] MEDS: megestrol acetate 400mg/10ml UD oral suspension PO SCH (09:02)
[2017-03-05] MEDS: metoprolol tartrate 12.5mg (1/2 tablet) PO SCH (09:02)
[2017-03-05] MEDS: metroNIDAZOLE 500mg tablet PO SCH (09:02)
[2017-03-05] MEDS: LACTOBACILLUS RHAMNOSUS GG 15 billion unit sprinkle caps PO SCH (09:02)
[2017-03-05] MEDS: LIPASE/PROTEASE/AMYLASE 4,200 unit CAPSULE.DR PO SCH ×3 (09:03→17:30)
[2017-03-05] MEDS: ceftazidime 1000mg in D5W 50ml 50 ML IV SCH (09:03)
[2017-03-05] MEDS: vancomycin inj 1,250 MG in normal saline 250ml IV soln 250 ML IV SCH (10:18)
[2017-03-05 12:01] VITALS: BP 105/63
[2017-03-05] MEDS ORDERED: metoclopramide 5 mg/ml inj IV PRN (15:20)
[2017-03-05] MEDS ORDERED: morphine oral 20mg/ml (conc. morphine) 1ml oral syringe PO PRN (15:20)
[2017-03-05] MEDS ORDERED: LORazepam 2 mg/ml vial IV ONE (15:20)
[2017-03-05] MEDS ORDERED: dronabinol 2.5mg capsule PO PRN (15:20)
[2017-03-05] MEDS ORDERED: apixaban 2.5mg tablet PO SCH (15:25)
[2017-03-05] MEDS ORDERED: atropine sulfate 1% ophthalmic drops SL PRN (15:35)
[2017-03-05] MEDS: docusate sod 250mg capsule PO SCH (21:00)
[2017-03-05] MEDS: polyethylene glycol 3350 17gm powd pack PO SCH (21:00)
[2017-03-06] MEDS: morphine/NS 5 mg/ml CADD 50 ML IV SCH ×12 (01:00→23:00)
[2017-03-06 07:18] VITALS: BP 115/63
[2017-03-06] MEDS: LACTOSE-FREE FOOD 237ML (BOOST) PO SCH ×2 (07:30→17:30)
[2017-03-06] MEDS: LACTOBACILLUS RHAMNOSUS GG 15 billion unit sprinkle caps PO SCH (07:30)
[2017-03-06] MEDS: Protein Shake (high protein) 240ml (8oz) cup PO SCH ×3 (08:00→18:00)
[2017-03-06] MEDS ORDERED: ondansetron 4mg rapidly disintigrating tab PO PRN (08:15)
[2017-03-06] MEDS: LIPASE/PROTEASE/AMYLASE 4,200 unit CAPSULE.DR PO SCH ×3 (08:30→17:30)
[2017-03-06] MEDS: morphine 10mg/0.5ml (conc. morphine) oral syringe PO PRN ×2 (09:40→11:32)
[2017-03-06 20:00] VITALS: BP 111/89
[2017-03-06] MEDS: polyethylene glycol 3350 17gm powd pack PO SCH (21:00)
[2017-03-06] MEDS: docusate sod 250mg capsule PO SCH (21:00)
[2017-03-07] MEDS: morphine/NS 5 mg/ml CADD 50 ML IV SCH ×12 (01:00→23:00)
[2017-03-07 06:00] VITALS: BP 110/68
[2017-03-07] MEDS: LACTOSE-FREE FOOD 237ML (BOOST) PO SCH ×2 (07:30→17:59)
[2017-03-07] MEDS: LACTOBACILLUS RHAMNOSUS GG 15 billion unit sprinkle caps PO SCH (08:44)
[2017-03-07] MEDS: LIPASE/PROTEASE/AMYLASE 4,200 unit CAPSULE.DR PO SCH ×3 (08:44→18:42)
[2017-03-07] MEDS: Protein Shake (high protein) 240ml (8oz) cup PO SCH ×3 (08:45→18:00)
[2017-03-07] MEDS ORDERED: VANCOMYCIN LEVEL IV NR (09:30)
[2017-03-07 11:00] VITALS: BP 104/57
[2017-03-07] MEDS: LORazepam 1 MG tablet PO PRN (13:02)
[2017-03-07 19:00] VITALS: BP 100/68
[2017-03-07] MEDS: polyethylene glycol 3350 17gm powd pack PO SCH (21:00)
[2017-03-07] MEDS: docusate sod 250mg capsule PO SCH (21:00)
[2017-03-08] MEDS: morphine/NS 5 mg/ml CADD 50 ML IV SCH ×6 (01:00→11:00)
[2017-03-08] MEDS: LORazepam 1 MG tablet PO PRN ×2 (01:15→08:27)
[2017-03-08 07:00] VITALS: BP 104/63
[2017-03-08] MEDS: LACTOSE-FREE FOOD 237ML (BOOST) PO SCH (07:30)
[2017-03-08] MEDS: Protein Shake (high protein) 240ml (8oz) cup PO SCH ×2 (08:00→13:00)
[2017-03-08] MEDS: LACTOBACILLUS RHAMNOSUS GG 15 billion unit sprinkle caps PO SCH (08:27)
[2017-03-08] MEDS: LIPASE/PROTEASE/AMYLASE 4,200 unit CAPSULE.DR PO SCH ×2 (08:29→12:30)
[2017-03-08] MEDS ORDERED: MAG30ORA PO (10:42)
[2017-03-08] MEDS ORDERED: ATI1T IV (10:42)
[2017-03-08] MEDS ORDERED: BISA10SU60 RC (10:42)
[2017-03-08] MEDS ORDERED: MORP100S12 PO (10:42)
[2017-03-08] MEDS ORDERED: ZOF4I IV (10:42)
[2017-03-08] MEDS ORDERED: ATRO2DRO4 SL (10:42)
== END 2017-03-08 12:30 | disposition hospice, inpatient (51) | DRG 871 ==
LOC: ER 03:21 → ED HOLD 08:28 → SUR 3N 10:35
PROVIDERS: ADMIT Internal Medicine; ATTEND Internal Medicine
PROC: 0F9030Z Drainage of Liver with Drainage Device, Percutaneous Approach (ICD-10-PCS; principal; 2017-02-16)
PROC: BW201ZZ Computerized Tomography (CT Scan) of Abdomen using Low Osmolar Contrast (ICD-10-PCS; 2017-02-18)
PROC: 0F20X0Z Change Drainage Device in Liver, External Approach (ICD-10-PCS; 2017-02-21)
DX: A41.9 Sepsis, unspecified organism (principal); K75.0 Abscess of liver; E43 Unspecified severe protein-calorie malnutrition; I82.403 Acute embolism and thrombosis of unspecified deep veins of lower extremity, bilateral; D68.9 Coagulation defect, unspecified; C25.9 Malignant neoplasm of pancreas, unspecified; K83.1 Obstruction of bile duct; I47.1 Supraventricular tachycardia; D64.9 Anemia, unspecified; Z68.1 Body mass index [BMI] 19.9 or less, adult; I82.503 Chronic embolism and thrombosis of unspecified deep veins of lower extremity, bilateral; B96.5 Pseudomonas (aeruginosa) (mallei) (pseudomallei) as the cause of diseases classified elsewhere; J44.9 Chronic obstructive pulmonary disease, unspecified; I10 Essential (primary) hypertension; K59.00 Constipation, unspecified; M81.0 Age-related osteoporosis without current pathological fracture; G89.29 Other chronic pain; M19.90 Unspecified osteoarthritis, unspecified site; M54.9 Dorsalgia, unspecified; R33.9 Retention of urine, unspecified; F17.210 Nicotine dependence, cigarettes, uncomplicated; Z51.5 Encounter for palliative care; Z88.0 Allergy status to penicillin; Z88.7 Allergy status to serum and vaccine; Z79.899 Other long term (current) drug therapy
CPT/HCPCS: 36415; 49406; 74160; 74176; 80048; 80053; 80202; 81001; 83690; 83735; 84484; 85025; 85027; 85610; 85730; 87070; 87077; 87088; 87186; 93005; 93970; 94640; 94760; 96361; 96365; 96366; 96368; 96375; 97116; 97162; 97530; 99285; A4315; A4353; A6212; A6213; A6257; A6258; A6449; C1729; J0713; J1644; J1650; J1956; J2060; J2270; J2405; J2765; J2997; J3010; J3370; J3475; J3490; J7030; Q0167; Q9967